=== PATIENT | female | born 1960 | race Caucasian/White ===

== ENCOUNTER 2019-07-30 08:36 | Emergency (ER) | payer MEDICARE, MEDICAID ==
[~2019-07-30] VITALS: Ht 170.2 cm; Wt 77.3 kg
[~2019-07-30 08:36] MED LIST: LIDOcaine 1% 30ml preserv. free vial ONE
[2019-07-30 08:41] VITALS: BP 112/70
[2019-07-30] MEDS ORDERED: triamcinolone acetonide 40mg/ml inj IM ONE (09:15)
[2019-07-30] MEDS ORDERED: traMADol 50MG tablet PO ONE (09:15)
[2019-07-30] MEDS ORDERED: TRAM50TA2 PO (09:46)
== END 2019-07-30 10:00 | disposition home or self-care (01) ==
LOC: ER 08:36
DX: M75.41 Impingement syndrome of right shoulder (principal); G89.29 Other chronic pain; M41.9 Scoliosis, unspecified; Z79.899 Other long term (current) drug therapy
CPT/HCPCS: 20552; 99284; J2001

== ENCOUNTER 2020-09-24 04:37 | Emergency (ER) | payer MEDICARE, MEDICAID ==
[~2020-09-24] VITALS: Ht 170.2 cm; Wt 90.2 kg
[2020-09-24] MEDS ORDERED: CYCL-1 PO (05:15)
[2020-09-24] MEDS ORDERED: TRAM50TA2 PO (05:15)
[2020-09-24] MEDS ORDERED: proMETHazine 25mg tablet PO ONE (05:15)
[2020-09-24] MEDS ORDERED: orphenadrine citrate 60mg/2ml inj. IM ONE (05:15)
[2020-09-24] MEDS ORDERED: traMADol 50MG tablet PO ONE (05:15)
[2020-09-24] MEDS ORDERED: cyclobenzaprine 10mg tablet PO ONE (05:15)
[2020-09-24 05:28] VITALS: BP 152/98
== END 2020-09-24 05:29 | disposition home or self-care (01) ==
LOC: ER 04:37
DX: G89.29 Other chronic pain (principal); M54.5 Low back pain; R51.9 Headache, unspecified; M25.512 Pain in left shoulder; M25.552 Pain in left hip; M54.2 Cervicalgia; Z79.899 Other long term (current) drug therapy
CPT/HCPCS: 96372; 99284; J2360; Q0169